=== PATIENT | female | born 1965 | race Asian ===

== ENCOUNTER 2017-12-30 10:03 | Outpatient (CLI) | payer OTHER | END 2017-12-30 10:04 | disposition critical access hospital (66) | LOC: EMS 10:03 | PROVIDERS: ATTEND Surgery | DX: R51 Headache (principal); R07.9 Chest pain, unspecified; R10.9 Unspecified abdominal pain; M25.551 Pain in right hip; M54.2 Cervicalgia; M54.5 Low back pain; V43.52XA Car driver injured in collision with other type car in traffic accident, initial encounter; Y92.414 Local residential or business street as the place of occurrence of the external cause | CPT/HCPCS: A0425; A0429 ==

== ENCOUNTER 2017-12-30 10:23 | Emergency (ER) | payer OTHER ==
[2017-12-30] MEDS ORDERED: ONDANSETRON 4 MG/2 ML VIAL IVP STA (10:43)
[2017-12-30] MEDS ORDERED: ACETAMINOPHEN 1,000 MG/100 ML 100 ML IV STA (10:43)
[2017-12-30] MEDS ORDERED: HYDROmorphone 1 MG/ML SYRINGE IVP STA (10:43)
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
[2017-12-30] MEDS ORDERED: IOPAMIDOL-300 100 ML VIAL ONE (10:58)
[2017-12-30] MEDS ORDERED: IOPAMIDOL-300 100 ML VIAL IVP ONE (11:26)
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
--- NOTE | 2017-12-30 12:00 | CT Preliminary Report ---
Exam: CT HEAD W/O IMPRESSION: 1. No acute intracranial abnormality evident. No interval hemorrhage or space-occupying lesion. Intac t calvarium. [facility] SITE ID: [id number]
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
--- NOTE | 2017-12-30 12:08 | CT Preliminary Report ---
Exam: CT CERVICAL SPINE W/O IMPRESSION: 1. No fracture or dislocation of cervical spine. 2. Prominent anterior paravertebral ossification/osteophytes suggestive of DISH. 3. A 1.6 cm left thyroid nodule. Suggest elective ultrasound evaluation. [facility] SITE ID: [id number]
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
--- NOTE | 2017-12-30 12:20 | CT Preliminary Report ---
Exam: CT ABDOMEN/PELVIS W/ IMPRESSION: Diffuse hepatic steatosis. No evidence of an intra-abdominal hemorrhage or laceration. No evidence of displaced fracture. Degenerative changes of the thoracic and lumbar spine. [facility] SITE ID: [id number]
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
[2017-12-30] MEDS ORDERED: KETOROLAC 60 MG/2 ML VIAL IVP STA (12:49)
[2017-12-30 13:10] VITALS: BP 139/69
== END 2017-12-30 13:26 | disposition home or self-care (01) ==
LOC: ED 10:23
DX: S16.1XXA Strain of muscle, fascia and tendon at neck level, initial encounter (principal); S20.222A Contusion of left back wall of thorax, initial encounter; S80.02XA Contusion of left knee, initial encounter; V43.52XA Car driver injured in collision with other type car in traffic accident, initial encounter; Z79.82 Long term (current) use of aspirin
CPT/HCPCS: 70450; 71260; 72125; 73564; 74177; 96365; 96375; 99284; J0131; J1170; Q9967

== ENCOUNTER 2018-07-27 08:11 | Outpatient (CLI) | payer OTHER ==
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
== END 2018-07-27 08:12 | disposition home or self-care (01) ==
LOC: DI 08:11
PROVIDERS: ATTEND Family Medicine
DX: M48.02 Spinal stenosis, cervical region (principal)
CPT/HCPCS: 72141

== ENCOUNTER 2019-01-03 09:09 | Outpatient (CLI) | payer OTHER ==
--- NOTE | 2019-01-03 16:03 | MRI Report ---
Reason: ROTATOR CUFF TEAR OR RUPTURE OF UNSPECIFIED SHOULD Procedure Date: 01/03/2019 Accession Number: [id number] / [id number] Procedure: MRI - Shoulder LT W/O CPT Code: FULL RESULT: EXAM: LEFT SHOULDER MRI WITHOUT CONTRAST EXAM DATE: 01/03/2019 10:14 AM. CLINICAL HISTORY: ROTATOR CUFF TEAR OR RUPTURE OF UNSPECIFIED SHOULD. COMPARISON: None. TECHNIQUE: Multiplanar, multisequence T1-weighted and fluid-sensitive sequences of the shoulder without contrast. Other: None. FINDINGS: Rotator cuff: Mild thickening and increased T2 signal involving distal supraspinatus and infraspinatus. Ill-defined fraying of the bursal surface of the supraspinatus. No rotator cuff muscle atrophy or fatty replacement. Long head biceps tendon: Intact, demonstrating normal course, signal, and morphology. Labrum: No definite tear demonstrated on this nonarthrographic study. Bones and articular surfaces: No significant articular cartilage defects. There is some thickening and edema associated with the axillary joint capsule and rotator interval. Acromioclavicular joint: Mild degenerative change. Type I acromion. Small volume of fluid in the subacromial/subdeltoid bursa. IMPRESSION: 1. Mild supraspinatus and infraspinatus tendinosis. 2. Thickening and edema involving portions of the glenohumeral joint capsule raising the possibility of capsular sprain or adhesive capsulitis. 3. Mild subacromial/subdeltoid bursitis. [facility] MUSCULOSKELETAL RADIOLOGY SECTION
== END 2019-01-03 09:10 | disposition home or self-care (01) ==
LOC: DI 09:09
PROVIDERS: ATTEND Family Medicine
DX: M75.92 Shoulder lesion, unspecified, left shoulder (principal); M75.52 Bursitis of left shoulder; R60.0 Localized edema

== ENCOUNTER 2019-10-21 16:22 | Emergency (ER) | payer OTHER ==
[2019-10-21 16:30] VITALS: BP 127/72
[2019-10-21] MEDS ORDERED: predniSONE 20 MG TABLET PO STA (16:38)
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
== END 2019-10-21 16:48 | disposition home or self-care (01) ==
LOC: ED 16:22
DX: L25.9 Unspecified contact dermatitis, unspecified cause (principal); Z79.82 Long term (current) use of aspirin
CPT/HCPCS: 99282; 99284; J7512

== ENCOUNTER 2022-08-18 15:59 | Emergency (ER) | payer OTHER ==
--- NOTE | 2022-08-18 17:20 | CT Report ---
PROCEDURE: ABDOMEN/PELVIS WO INDICATIONS: fall with low back and pelvic pain TECHNIQUE: Noncontrast 5 mm thick sections acquired from the diaphragms to the symphysis. 5 mm coronal and sagi ttal reformats were then performed. For radiation dose reduction, the following was used: automated exposure control, adjustment of mA and/or kV according to patient size. COMPARISON: 12/30/2017 FINDINGS: Image quality: Excellent. ABDOMEN: Lung bases: Lung bases are clear. Heart size is normal. Solid organs: Diffuse fatty liver infiltration can be seen. The liver demonstrates normal size and demonstrates no suspicious lesions. The spleen demonstrates normal size and demonstrates no suspicio us lesions. Gallbladder demonstrates mild wall thickening. Pancreas is normal in contours. No adre nal nodules. Kidneys are normal in size, without hydronephrosis or nephrolithiasis. Peritoneum and bowel: Unenhanced bowel loops demonstrate normal wall thickness and caliber. No free fluid or air. A normal appendix is incidentally noted. Diverticulosis can be seen, without daisy f indings of active diverticulitis. Nodes and vessels: No retroperitoneal or mesenteric adenopathy by size criteria. Aorta and inferior vena cava are normal in caliber. Miscellaneous: No ventral hernias. PELVIS: Genitourinary: Bladder wall thickness is normal. The uterus demonstrates a fibroid appearance. No a dnexal masses are seen. Miscellaneous: No inguinal hernias or adenopathy. Bones: No suspicious bony lesions. No vertebral body compression fractures. Age-appropriate degene rative changes are seen, including partial fusion of the sacroiliac joints, right worse than left. IMPRESSION: No acute posttraumatic abnormality is seen. No lumbar spine fracture is seen. The gallbladder again demonstrates wall thickening. Incidental note is made of: Fatty liver Diverticulosis, without findings of active diverticulitis. Normal appendix. Fibroid appearing uterus Reviewed by: Servando Wade MD on 08/18/2022 4:18 PM [facility] Approved by: Servando Wade MD on 08/18/2022 4:18 PM [facility] Station ID: [id number]
--- NOTE | 2022-08-18 18:04 | ED Physician Documentation ---
PD HPI BACK PAIN - Stated complaint Stated Complaint: LOWER BACK PX - Chief complaint Chief Complaint: Trauma Ch/Bk - History obtained from History obtained from: Patient - History of Present Illness Timing - onset: How many hours ago (few), Today Timing - duration: Hours Timing - details: Abrupt onset, Still present Location: Lower, Right, Other (radiating to right anterior thigh/lower leg.) Quality: Pain, Sharp Associated symptoms: No: Fever, Weakness, Numbness Worsened by: Movement, Palpation (right lateral hip and lower back) Contributing factors: Trauma (she states she tripped over object at work and fell to right side with twisting motion and impact to right hip/back. Pain in those areas radiating to right thigh.) Similar symptoms before: Has not had sx before Recently seen: Not recently seen Review of Systems Constitutional: denies: Fever, Chills Nose: denies: Rhinorrhea / runny nose, Congestion Throat: denies: Sore throat Cardiac: denies: Chest pain / pressure Respiratory: denies: Cough GI: denies: Abdominal Pain, Nausea, Vomiting Skin: denies: Abrasion (s), Laceration (s) Musculoskeletal: reports: Back pain, Extremity pain Neurologic: denies: Generalized weakness, Focal weakness, Numbness, Altered mental status, Headache, Head injury PD PAST MEDICAL HISTORY - Past Medical History Past Medical History: Yes Cardiovascular: Hypertension, High cholesterol Respiratory: None Neuro: None Endocrine/Autoimmune: Type 2 diabetes, HyPOthyroidism GI: GERD, Hemorrhoids RN CLINICAL QUALITY: None : None HEENT: None Psych: None Musculoskeletal: Other Derm: Eczema - Past Surgical History Past Surgical History: Yes Ortho: Other - Present Medications Home Medications: Ambulatory Orders Medication Instructions Recorded Confirmed Aspirin [Aspirin EC] 81 mg PO DAILY 12/30/17 08/18/22 lisinopriL [Lisinopril] 5 mg PO DAILY 12/30/17 08/18/22 Gabapentin 300 mg PO ONCE PRN 05/28/20 06/10/20 Multivitamin/Iron/Folic Acid 1 each PO DAILY 05/28/20 08/18/22 [Centrum Adults Tablet] Sitagliptin Phos/Metformin HCl 1 each PO BID 05/28/20 08/18/22 [Janumet 50-1,000 mg Tablet] HYDROcod/ACETAM 5/325 [[place] 5/325] 1 ea PO Q6H PRN #12 tablet 08/18/22 Rosuvastatin Calcium [Crestor] 20 mg PO DAILY 08/18/22 08/18/22 tiZANidine [Zanaflex] 4 mg PO Q8H PRN #15 tablet 08/18/22 - Allergies Allergies/Adverse Reactions: Allergies Allergy/AdvReac Type Severity Reaction Status Date / Time No Known Drug Allergies Allergy Verified 08/18/22 16:09 - Social History Does the pt smoke?: No Smoking Status: Never smoker Does the pt drink ETOH?: No Does the pt have substance abuse?: No - Immunizations Immunizations are current?: Yes PD ED PE NORMAL - Vitals Vital signs reviewed: Yes - General General: Alert and oriented X 3, No acute distress, Well developed/nourished - HEENT HEENT: Atraumatic - Neck Neck: Supple, no meningeal sign, No bony TTP - Abdomen Abdomen: Soft, Non tender - Back Back: No CVA TTP, Other (there is tenderness right lower lumbar area muscles but also in midline mid to lower lumbar spine area. ) - Derm Derm: Normal color, Warm and dry - Extremities Extremities: Other (right lateral hip and iliac area tender to palpation. No noted bruising. ) - Neuro Neuro: Alert and oriented X 3, No motor deficit, No sensory deficit Results - Vitals Vitals: Vital Signs - 24 hr 08/18/22 08/18/22 16:09 18:45 Temperature 37.1 C 36.5 C Heart Rate 94 84 Respiratory 20 18 Rate Blood Pressure 161/88 H 127/72 O2 Saturation 100 97 Oxygen O2 Source Room air - Labs Labs: Laboratory Tests 08/18/22 16:15 POC Whole Bld Glucose 140 H - Rads (name of study) abd/pelvic CT Radiology: Prelim report reviewed (no fractures nor traumatic injuries noted. ), See rad report PD MEDICAL DECISION MAKING - ED course Complexity details: reviewed results (no fractures nor acute injuries. ), considered differential (The patient does have some midline tenderness in the lower lumbar area and also at the iliac crest and pelvic area. Plain x-ray will have lower yield for these and given some radiation of pain to the thigh, I felt CT would be more appropriate.), d/w patient Departure - Departure Disposition: 01 Home, Self Care Clinical Impression: Fall from slip, trip, or stumble Qualifiers: Encounter type: initial encounter Qualified Code(s): W01.0XXA - Fall on same level from slipping, tripping and stumbling without subsequent striking against object, initial encounter Acute lumbar myofascial strain Qualifiers: Encounter type: initial encounter Qualified Code(s): S39.012A - Strain of muscle, fascia and tendon of lower back, initial encounter Contusion, hip Qualifiers: Encounter type: initial encounter Laterality: right Qualified Code(s): S70.01XA - Contusion of right hip, initial encounter Condition: Stable Record reviewed to determine appropriate education?: Yes Instructions: ED Sprain Strain Lumbar Follow-Up: Araceli Lino MD [Primary Care Provider] - Prescriptions: HYDROcod/ACETAM 5/325 [[place] 5/325] 1 ea PO Q6H PRN #12 tablet PRN Reason: Pain tiZANidine [Zanaflex] 4 mg PO Q8H PRN #15 tablet PRN Reason: Spasms Comments: We did do a CT scan of your low back and pelvis. No signs of fractures nor organ injury nor obvious disc injuries. The CT scan would not be able to detect simple bruising and muscle strain or some irritation of the nerve roots in the back. Therefore you may still be hurting quite a bit without having to have a positive findings on the CT scan. For this I would suggest using some anti-inflammatory such as ibuprofen 400 to 600 mg 3 times a day with food. To that add Tylenol every 4-6 hours if needed for pain. Heat stretching massage are all good. You may need a day or 2 off work to improve from the injuries. If you need stronger medication for muscle relaxant or pain, I did send prescriptions to the [facility] pharmacy for tomorrow at your direction. I would anticipate improvement over the next 3 to 5 days. I am prescribing a short course of narcotic pain medication for you. These are potentially dangerous and addictive medications that should be used carefully. These medications may constipate you. Take an [id number] stool softener such as docusate twice daily with plenty of water while taking these medications. If you go 24 hours without a bowel movement, take [id number]-brh-[id number] MiraLAX, per package instructions. Do not drink or drive while taking these medications. If you received narcotic or sedating medications while in the emergency department do not drive for 24 hours. Store this medication in a safe, secure place and out of reach of children. It is a violation of federal law to give or sell this medication to another person or to use in a manner other than prescribed. The ED will not refill narcotic prescriptions, including prescriptions lost or stolen. You can dispose of unwanted medications at the [facility] office or at several pharmacies such as [facility]. Forms: Activity restrictions Discharge Date/Time: 08/18/22 18:55
[2022-08-18] MEDS ORDERED: ACETAMINOPHEN 325 MG TABLET PO STA (18:14)
[2022-08-18] MEDS ORDERED: KETOROLAC 30 MG/ML VIAL IM STA (18:14)
[2022-08-18] MEDS ORDERED: methocarbamoL 500 MG TABLET PO STA (18:14)
[2022-08-18 18:45] VITALS: BP 127/72
== END 2022-08-18 18:55 | disposition home or self-care (01) ==
LOC: ED 15:59
DX: S39.012A Strain of muscle, fascia and tendon of lower back, initial encounter (principal); S70.01XA Contusion of right hip, initial encounter; W01.0XXA Fall on same level from slipping, tripping and stumbling without subsequent striking against object, initial encounter; I10 Essential (primary) hypertension; E11.9 Type 2 diabetes mellitus without complications; Z79.84 Long term (current) use of oral hypoglycemic drugs
CPT/HCPCS: 74176; 96372; 99282; 99284; A9270

== ENCOUNTER 2022-10-08 12:15 | Emergency (ER) | payer OTHER ==
[2022-10-08] MEDS ORDERED: ONDANSETRON 4 MG/2 ML VIAL IVP STA (12:32)
[2022-10-08] MEDS ORDERED: SODIUM CHLORIDE 0.9% 1,000 ML IV STA (12:32)
--- NOTE | 2022-10-08 12:54 | ED Physician Documentation ---
History of Present Illness - Stated complaint Stated Complaint: SHAKING/CHILLED - Chief complaint Chief Complaint: General - Additonal information Additional information: History obtained from patient. Patient is a 57-year-old female who has a history of diabetes that presents to the emergency department for evaluation of rigors chills fever, nausea vomiting and diarrhea. Reports that 7 days ago she tested positive for influenza A. She had felt somewhat better over the course of the weekend and on Wednesday she went to work though she left early because she was not feeling well. Wednesday she began having fevers again as well as vomiting and diarrhea. Last time she vomited was yesterday in the a.m. She has had multiple watery stools over the last 48 hours. Nonbloody. Her biggest concern is that she has a lack of appetite. Anytime she eats a little bit she gets nauseated. She also has had swings in her blood sugars up to the 260s which is unusual for her. Patient has been able to drink adequate amounts of water over the last 24 hours. No dysuria urgency or frequency. No pertinent past surgical history. Review of Systems Constitutional: reports: Fever, Chills, Myalgias, Fatigue Eyes: reports: Reviewed and negative Nose: reports: Reviewed and negative Throat: reports: Reviewed and negative Cardiac: reports: Reviewed and negative Respiratory: reports: Cough GI: reports: Diarrhea. 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 : None HEENT: None Psych: None Musculoskeletal: Other Derm: Eczema - Past Surgical History Past Surgical History: Yes Ortho: Other - Present Medications Home Medications: Ambulatory Orders Medication Instructions Recorded Confirmed Aspirin [Aspirin EC] 81 mg PO DAILY 12/30/17 08/18/22 lisinopriL [Lisinopril] 5 mg PO DAILY 12/30/17 08/18/22 Gabapentin 300 mg PO ONCE PRN 05/28/20 06/10/20 Multivitamin/Iron/Folic Acid 1 each PO DAILY 05/28/20 08/18/22 [Centrum Adults Tablet] Sitagliptin Phos/Metformin HCl 1 each PO BID 05/28/20 08/18/22 [Janumet 50-1,000 mg Tablet] HYDROcod/ACETAM 5/325 [[place] 5/325] 1 ea PO Q6H PRN #12 tablet 08/18/22 Rosuvastatin Calcium [Crestor] 20 mg PO DAILY 08/18/22 08/18/22 tiZANidine [Zanaflex] 4 mg PO Q8H PRN #15 tablet 08/18/22 Ondansetron Odt [Zofran] 4 mg TL Q6H PRN #10 tablet 10/08/22 - Allergies Allergies/Adverse Reactions: Allergies Allergy/AdvReac Type Severity Reaction Status Date / Time No Known Drug Allergies Allergy Verified 10/08/22 12:31 - Social History Does the pt smoke?: No Smoking Status: Never smoker Does the pt drink ETOH?: No Does the pt have substance abuse?: No - Immunizations Immunizations are current?: Yes PD ED PE NORMAL - General General: Alert and oriented X 3, No acute distress, Well developed/nourished - HEENT HEENT: Atraumatic, Moist mucous membranes - Neck Neck: Supple, no meningeal sign, No adenopathy - Cardiac Cardiac: RRR, No murmur - Respiratory Respiratory: No respiratory distress, Clear bilaterally - Abdomen Abdomen: Normal bowel sounds, Soft, Non tender - Derm Derm: Normal color, Warm and dry - Extremities Extremities: No deformity, No tenderness to palpate, Normal ROM s pain - Neuro Neuro: Alert and oriented X 3, wine consultant 2-12 intact Eye Opening: Spontaneous Motor: Obeys Commands Verbal: Oriented GCS Score: 15 Results - Vitals Vitals: Vital Signs - 24 hr 10/08/22 10/08/22 10/08/22 12:27 14:31 16:00 Temperature 36.6 C Heart Rate 86 72 78 Respiratory 16 18 18 Rate Blood Pressure 148/78 H 107/55 L 137/77 H O2 Saturation 100 100 99 Oxygen O2 Source Room air - Labs Labs: Laboratory Tests 10/08/22 10/08/22 10/08/22 12:50 13:08 13:08 WBC 5.6 RBC 4.66 Hgb 13.5 Hct 40.9 MCV 87.8 MCH 29.0 MCHC 33.0 RDW 11.6 L Plt Count 360 MPV 9.5 Neut # (Auto) 3.2 Lymph # (Auto) 1.8 [place] # (Auto) 0.5 Eos # (Auto) 0.1 Baso # (Auto) 0.0 Absolute Nucleated RBC 0.00 Nucleated RBC % 0.0 Sodium 139 Potassium 3.8 Chloride 101 Carbon Dioxide 23 Anion Gap 15.0 H BUN 12 Creatinine 0.6 Estimated GFR (MDRD) 103 Glucose 113 H Calcium 9.9 Total Bilirubin 0.6 AST 50 H ALT 61 H Alkaline Phosphatase 72 Total Protein 8.0 Albumin 4.8 Globulin 3.2 Albumin/Globulin Ratio 1.5 Lipase 44 Urine Color LT. YELLOW Urine Clarity CLEAR Urine pH 6.0 Ur Specific [place] <=1.005 Urine Protein NEGATIVE Urine Glucose (UA) NEGATIVE Urine Ketones NEGATIVE Urine Occult Blood NEGATIVE Urine Nitrite NEGATIVE Urine Bilirubin NEGATIVE Urine Urobilinogen 0.2 (NORMAL) Ur Leukocyte Esterase NEGATIVE Ur Microscopic Review NOT INDICATED Urine Culture Comments NOT INDICATED - Rads (name of study) cxr Radiology: Final report received (No acute cardiopulmonary abnormality.), EMP read indepedently abd us Radiology: Final report received (Shadowing masslike abnormality of the gallbladder fundus could represent shadowing gallstone, sludge or potentially a gallbladder wall mass. Gallbladder wall thickening was present on multiple prior CTs of the abdomen and pelvis) PD MEDICAL DECISION MAKING - ED course Complexity details: reviewed results, re-evaluated patient, considered differential, d/w patient ED course: 57-year-old female who has a history of diabetes presents the emergency department for evaluation of persistent fevers chills nausea and vomiting. She tested positive for influenza A 1 week ago. She has had mildly elevated sugars at home in the 250s. She has been persistently nauseated. Here in the emergency department her abdominal exam showed some left lower quadrant abdominal tenderness. However it was nonfocal and mild. She did have some additional right upper quadrant abdominal tenderness again without guarding or rebound. Subsequently we did obtain a CBC that showed no worrisome leukocyt osis or anemia. Her electrolytes were most significant for mild LFT abnormalities with an AST ALT elevation of 50 and 60 respectively. Given the mild right upper quadrant abdominal tenderness an ultrasound was obtained that does show a shadowing masslike abnormality within the fundus which may represent a shadowing gallstone or potentially gallbladder wall mass. This finding was discussed with the patient she is scheduled to see her primary care provider tomorrow. She is recommended to have an outpatient follow-up dedicated MRI or CT of this region for further evaluation and differentiation. Here in the emergency department she was given a liter of IV fluid and felt the symptoms of nausea had improved. She was also able to tolerate sips of apple juice. Prescription for Zofran has been sent to her pharmacy. We discussed the usual and emergent return precautions for worsening symptoms. Departure - Departure Disposition: 01 Home, Self Care Clinical Impression: History of influenza, Elevated LFTs, Gallbladder mass Diabetes Qualifiers: Diabetes mellitus type: type 2 Diabetes mellitus group home insulin use: without group home use Diabetes mellitus complication status: without complication Qualified Code(s): E11.9 - Type 2 diabetes mellitus without complications Condition: Stable Record reviewed to determine appropriate education?: Yes Follow-Up: Santi Gates [Primary Care Provider] - Prescriptions: Ondansetron Odt [Zofran] 4 mg TL Q6H PRN #10 tablet PRN Reason: Nausea / Vomiting Comments: You are seen today in the emergency department because you have had persistent nausea vomiting diarrhea weakness and chills after recently testing positive for influenza A. Here in the emergency department your chest x-ray was normal. We did obtain a CBC and electrolytes. The only worrisome abnormality was that he had mild LFT elevations in the 50s and 60s. Because she had some mild tenderness in the upper part of your abdomen we did do an abdominal ultrasound. The ultrasound suggests that you could have a gallbladder mass. It could also be a large shadowing stone. To further differentiate this you would likely benefit from a dedicated CT or MRI of this region. Please discuss this ED visit with your primary care doctor tomorrow to obtain this imaging. I sent a prescription for Zofran to the pharmacy which you can take 2-3 times a day to help with nausea and improve your appetite. Return to the ER if you have sudden severe abdominal pain, uncontrolled vomiting or feel that your symptoms or not improving as anticipated.
--- NOTE | 2022-10-08 13:04 | XRAY Report ---
PROCEDURE: Chest 1 View X-Ray INDICATIONS: chest pain TECHNIQUE: One view of the chest was acquired. COMPARISON: Chest CT 12/30/2017. FINDINGS: Surgical changes and devices: None. Lungs and pleura: No pleural effusions or pneumothorax. Lungs are clear. Mediastinum: Mediastinal contours appear normal. Heart size is normal. Bones and chest wall: No suspicious bony lesions. Coarse calcification in the right breast redemonst rated. The breasts are not well evaluated by chest radiography. IMPRESSION: No acute cardiopulmonary abnormality. Reviewed by: Devin Gomez MD on 10/08/2022 1:03 PM [facility] Approved by: Devin Gomez MD on 10/08/2022 1:03 PM [facility] Station ID: [id number]
[2022-10-08 13:15] LABS: BASOPHILS % (AUTO) 0.4 %; EOSINOPHILS # (AUTO) 0.1 10^3/uL (0.0-0.7); EOSINOPHILS % (AUTO) 1.1 %; HCT - HEMATOCRIT 40.9 % (37.0-47.0); HGB - HEMOGLOBIN 13.5 g/dL (12.0-16.0); LYMPHOCYTES # (AUTO) 1.8 10^3/uL (1.5-3.5); LYMPHOCYTES % (AUTO) 31.7 %; MEAN CORPUSCULAR VOLUME 87.8 fL (81.0-99.0); MEAN PLATELET VOLUME 9.5 fL (7.9-10.8); MONOCYTES # (AUTO) 0.5 10^3/uL (0.0-1.0); MONOCYTES % (AUTO) 8.3 %; NEUTROPHILS # (AUTO) 3.2 10^3/uL (1.5-6.6); NEUTROPHILS % (AUTO) 58.3 %; PLT - PLATELET COUNT 360 10^3/uL (130-450); RED BLOOD COUNT 4.66 10^6/uL (4.20-5.40); RED CELL DISTRIBUTION WIDTH 11.6 % (12.0-15.0); WHITE BLOOD COUNT 5.6 x10^3/uL (4.8-10.8)
[2022-10-08 13:17] LABS: BILIRUBIN,URINE NEGATIVE (NEGATIVE); GLUCOSE, URINE (UA) NEGATIVE (NEGATIVE); KETONES,URINE (UA) NEGATIVE (NEGATIVE); LEUKOCYTE ESTERASE, URINE NEGATIVE (NEGATIVE); NITRITE,URINE NEGATIVE (NEGATIVE); OCCULT BLOOD,URINE NEGATIVE (NEGATIVE); PROTEIN,URINE NEGATIVE (NEGATIVE); UROBILINOGEN,URINE 0.2 (NORMAL) E.U./dL (NORMAL)
[2022-10-08 13:19] LABS: CLARITY,URINE CLEAR (CLEAR)
[2022-10-08 13:32] LABS: ALBUMIN 4.8 g/dL (3.2-5.5); ALBUMIN/GLOBULIN RATIO 1.5 (1.0-2.2); BILIRUBIN,TOTAL 0.6 mg/dL (0.2-1.0); CALCIUM 9.9 mg/dL (8.5-10.3); CREATININE 0.6 mg/dL (0.4-1.0); POTASSIUM 3.8 mmol/L (3.5-5.0)
--- NOTE | 2022-10-08 16:55 | Ultrasound Report ---
PROCEDURE: Abdomen Limited INDICATIONS: N/V/D; elevated LFT TECHNIQUE: Real-time focused scanning was performed of the abdomen, with image documentation. COMPARISON: 08/18/2022 FINDINGS: Increased hepatic parenchymal echogenicity indicative of diffuse hepatic steatosis. Mildly coarsened hepatic echotexture is nonspecific. No focal hepatic mass. No intrahepatic or extrahepatic biliary du ctal dilatation. Shadowing mass at the gallbladder fundus likely represents tumefactive sludge or gallstone, although this is not definitive. Pancreas unremarkable. No shadowing calculus or hydronephrosis and the right kidney. IMPRESSION: Shadowing mass like abnormality of the gallbladder fundus could represent shadowing gallstone, tumefa ctive sludge, or potentially a gallbladder wall mass. Gallbladder wall thickening was present on mult iple prior CT abdomen/pelvis studies. Reviewed by: Jl Lambert MD on 10/08/2022 3:48 PM [facility] Approved by: Jl Lambert MD on 10/08/2022 3:48 PM [facility] Station ID: [id number]
[2022-10-08 17:40] VITALS: BP 141/66
== END 2022-10-08 17:57 | disposition home or self-care (01) ==
LOC: ED 12:15
DX: R79.89 Other specified abnormal findings of blood chemistry (principal); K82.8 Other specified diseases of gallbladder; E11.9 Type 2 diabetes mellitus without complications; Z86.19 Personal history of other infectious and parasitic diseases
CPT/HCPCS: 36415; 80053; 81001; 81003; 83690; 85025; 87086; 96361; 96374; 99283

== ENCOUNTER 2022-10-23 11:41 | Outpatient (CLI) | payer OTHER ==
[2022-10-23] MEDS ORDERED: DIATRIZOATE MEGLU/DIATRIZO SOD 30 ML BOTTLE PO ONE ×2 (11:46→13:06)
[2022-10-23] MEDS ORDERED: iohexoL-300 100 ML VIAL ONE (11:49)
[2022-10-23] MEDS ORDERED: iohexoL-300 100 ML VIAL IVP ONE (13:06)
--- NOTE | 2022-10-23 13:22 | CT Report ---
PROCEDURE: ABDOMEN/PELVIS W INDICATIONS: RIGHT UPPER QUAD PAIN CONTRAST: 100ml omni 300 TECHNIQUE: After the administration of oral and intravenous contrast, 5 mm thick sections acquired from the diap hragms to the symphysis. 5 mm thick coronal and sagittal reformats were acquired. For radiation dos e reduction, the following was used: automated exposure control, adjustment of mA and/or kV accordin g to patient size. COMPARISON: CT abdomen and pelvis without contrast dated 08/18/2022, right upper quadrant ultrasound dated 10/08/2022. FINDINGS: Image quality: Excellent. ABDOMEN: Lung bases: Lung bases are clear. Heart size is normal. Solid organs: Liver and spleen are normal in size and enhancement. Mild diffuse hepatic steatosis. G allbladder is again noted to be abnormal in appearance. It may potentially represent a thickened wall surrounding stones. However, a gallbladder mass is not excluded. Biliary system is non dilated. Pa ncreas enhances normally. No adrenal nodules. Kidneys demonstrate normal size and enhancement, with out hydronephrosis. Peritoneum and bowel: Bowel loops demonstrate normal wall thickness and caliber. No free fluid or a ir. Nodes and vessels: No retroperitoneal or mesenteric adenopathy by size criteria. Aorta and inferior vena cava are normal in size. Miscellaneous: No ventral hernias. PELVIS: Genitourinary: Bladder wall thickness is normal. Miscellaneous: No inguinal hernias or adenopathy. Fibroid uterus. Bones: No suspicious bony lesions. No vertebral body compression fractures. IMPRESSION: 1. Abnormal appearance of the gallbladder, possibly representing a thickened wall surrounding large n oncalcified stones. However, cannot exclude a gallbladder mass. 2. Mild diffuse hepatic steatosis. 3. Fibroid uterus. Comment: Recommend surgical referral for consideration of cholecystectomy. Reviewed by: Aaron Bañuelos MD on 10/23/2022 1:20 PM PST Approved by: Aaron Bañuelos MD on 10/23/2022 1:20 PM PST Station ID: [id number]
== END 2022-10-23 11:42 | disposition home or self-care (01) ==
LOC: DI 11:41
PROVIDERS: ATTEND Internal Medicine
DX: R10.11 Right upper quadrant pain (principal); R93.3 Abnormal findings on diagnostic imaging of other parts of digestive tract; K76.0 Fatty (change of) liver, not elsewhere classified; D25.9 Leiomyoma of uterus, unspecified
CPT/HCPCS: 74177; Q9963; Q9967

== ENCOUNTER 2022-11-07 08:10 | Outpatient (CLI) | payer OTHER ==
[2022-11-07 08:52] LABS: CALCIUM 9.5 mg/dL (8.5-10.3); CREATININE 0.6 mg/dL (0.4-1.0); POTASSIUM 3.8 mmol/L (3.5-5.0)
[2022-11-07 09:01] LABS: ALBUMIN 4.9 g/dL (3.2-5.5); ALKALINE PHOSPHATASE 71 IU/L (42-121); ALT ALANINE AMINOTRANSFERASE 35 IU/L (10-60); AST ASPARTATE AMINOTRANSFERASE 30 IU/L (10-42); BILIRUBIN,DIRECT 0.1 mg/dL (0.1-0.5); BILIRUBIN,TOTAL 0.8 mg/dL (0.2-1.0); CHOL/HDL RATIO 1.8 (<4.4); CHOLESTEROL 121 mg/dL; HDL CHOLESTEROL 68 mg/dL; LDL CHOLESTEROL,CALCULATED 41 mg/dL; LDL/HDL RATIO 0.6 (<4.4); TOTAL PROTEIN 7.6 g/dL (6.7-8.2); TRIGLYCERIDES 58 mg/dL; VLDL CHOLESTEROL 12 mg/dL
[2022-11-07 13:00] LABS: ESTIMATED AVERAGE GLUCOSE 166 mg/dL (70-100); HEMOGLOBIN A1c% 7.4 % (4.27-6.07)
== END 2022-11-07 08:11 | disposition home or self-care (01) ==
LOC: LAB 08:10
PROVIDERS: ATTEND Family Medicine
DX: E78.01 Familial hypercholesterolemia (principal); Z79.899 Other long term (current) drug therapy
CPT/HCPCS: 36415; 80048; 80061; 80076; 83036; 83721